=== PATIENT | female | born 1970 | race African-American/Black ===

== ENCOUNTER → 2020-11-22 | Outpatient (CLI) | payer BC ==
[~2020-11-22] VITALS: Ht 157.5 cm; Wt 71.7 kg
[~2020-11-22] MED LIST: ACID CONTROLLER20 MG PO; AMITIZA8 MCG PO; CEFUROXIME500 MG PO; CYCLOBENZAPRINE5 MG PO; DITROPAN 5 MG TA5 MG PO; FOLIC ACID 1 MG1 MG PO; HYDROCHLOROTHIA25 MG PO; IBUPROFEN800 MG PO; METHOTREXATE T2.5 MG PO; PRAVASTATIN SOD20 MG PO; PREDNISONE 5 MG5 MG PO; TRAMADOL HCL50 MG PO; VISTARIL25 MG PO; ZESTRIL40 MG PO; ZOFRAN4 MG PO
== END ==
LOC: OPSV 08:00
DX: M06.9 Rheumatoid arthritis, unspecified (principal)
CPT/HCPCS: 96372; J0717-JG

== ENCOUNTER → 2020-11-24 | Outpatient (CLI) | payer BC | LOC: KOH-I 09:52 | DX: M25.552 Pain in left hip (principal) | CPT/HCPCS: 73502 ==